=== PATIENT | male | born 1970 | race Caucasian/White ===

== ENCOUNTER 2016-06-20 22:48 | Emergency (ER) | payer OTHER | END 2016-06-21 01:40 | disposition home or self-care (01) | LOC: ER 22:48 | DX: L02.414 Cutaneous abscess of left upper limb (principal); L02.413 Cutaneous abscess of right upper limb; F41.9 Anxiety disorder, unspecified; Z87.891 Personal history of nicotine dependence; Z79.899 Other long term (current) drug therapy; Z88.6 Allergy status to analgesic agent ==

== ENCOUNTER 2016-06-24 08:32 | Emergency (ER) | payer OTHER | END 2016-06-24 13:25 | disposition home or self-care (01) | LOC: ER 08:32 | DX: R07.89 Other chest pain (principal); L03.114 Cellulitis of left upper limb; F19.10 Other psychoactive substance abuse, uncomplicated; R60.9 Edema, unspecified; H53.8 Other visual disturbances; F41.9 Anxiety disorder, unspecified; I10 Essential (primary) hypertension; F17.210 Nicotine dependence, cigarettes, uncomplicated; Z79.899 Other long term (current) drug therapy; Z88.6 Allergy status to analgesic agent | CPT/HCPCS: 36415; G0480 ==